=== PATIENT | female | born 1960 | race Caucasian/White ===

== ENCOUNTER 2023-11-23 03:28 | Emergency (ER) | payer BC ==
[~2023-11-23] VITALS: Ht 160 cm; Wt 5.9 kg
[2023-11-23] MEDS ORDERED: IV NORMAL SALINE 1000 ML BAG IV ONE (04:00)
[2023-11-23] MEDS ORDERED: MORPHINE SULFATE 2 MG/1 ML DISP.SYRIN IV ONE (04:00)
[2023-11-23] MEDS ORDERED: ONDANSETRON 4 MG/2 ML VIAL IV ONE ×3 (04:00→11:45)
[2023-11-23] MEDS ORDERED: ONDANSETRON 4 MG/2 ML VIAL ONE (04:10)
[2023-11-23] MEDS ORDERED: MORPHINE SULFATE 4 MG/1 ML DISP.SYRIN ONE ×2 (04:10→11:48)
[2023-11-23 04:27] LABS: BASOPHILS % (AUTO) 0.3 % (0.0-2.0); HEMATOCRIT 38.2 % (31.2-41.9); HEMOGLOBIN 12.8 g/dL (10.9-14.3); LYMPHOCYTES # (AUTO) 0.4 K/uL (0.8-4.8); LYMPHOCYTES % (AUTO) 3.6 % (20.5-51.5); MEAN CORPUSCULAR HEMOGLOBIN 27.7 uug (24.7-32.8); MEAN CORPUSCULAR HGB CONC 33 g/dL (32.3-35.6); MONOCYTES # (AUTO) 0.3 K/uL (0.1-1.30); MONOCYTES % (AUTO) 2.9 % (0.0-11.0); NEUTROPHILS # (AUTO) 9.1 K/uL (1.8-8.9); NEUTROPHILS % (AUTO) 93.2 % (38.5-71.5); PLATELET COUNT (AUTO) 275 K/uL (179-408); RED CELL DISTRIBUTION WIDTH 14.4 % (12.3-17.7); WHITE BLOOD COUNT (AUTO) 9.8 K/uL (3.8-11.8)
[2023-11-23 05:16] LABS: DIFFERENTIAL COMMENT 1
[2023-11-23 05:26] LABS: ALANINE AMINOTRANSFERASE 443 U/L (14-59); ALBUMIN 4.2 g/dL (3.4-5.0); ALKALINE PHOSPHATASE 145 U/L (50-136); ASPARTATE AMINOTRANSFERASE 236 U/L (15-37); BILIRUBIN,DIRECT 0.2 mg/dL (0.0-0.2); BILIRUBIN,TOTAL 0.5 mg/dL (0.2-1.0); CARBON DIOXIDE 26 mmol/L (21-32); CHLORIDE 103 mmol/L (98-107); CREATININE 0.4 mg/dL (0.6-1.3); GLUCOSE 168 mg/dL (74-106); POTASSIUM 4.3 mmol/L (3.5-5.1); SODIUM SERUM 141 mmol/L (136-145); TOTAL PROTEIN, SERUM 8.7 g/dL (6.4-8.2); UREA NITROGEN, BLOOD 23 mg/dL (7-18)
[2023-11-23 05:40] LABS: LIPASE 30 U/L (16-77)
[2023-11-23 05:44] LABS: CALCIUM 9.6 mg/dL (8.5-10.1)
[2023-11-23] MEDS ORDERED: PIPERACILLIN/TAZOBACTAM/D5W 50 ML IV ONE (07:21)
[2023-11-23] MEDS ORDERED: PIPERACILLIN SODIUM/TAZOBACTAM 3.375 G in IV DEXTROSE 5% 50 ML IV ONE (07:30)
[2023-11-23 07:36] LABS: *BILIRUBIN,URIN NEGATIVE (NEGATIVE); *CLARITY,URINE TURBID (CLEAR); *COLOR,URINE YELLOW (YELLOW); *KETONES,URINE TRACE (NEGATIVE); *PROTEIN,URINE TRACE (NEGATIVE); *UROBILINOGEN,URINE 0.2 E.U./dl (NORMAL); LEUKOCYTE ESTERASE ,URINE NEGATIVE (NEGATIVE); NITRITE, URINE NEGATIVE (NEGATIVE); UGLUCOSE NEGATIVE (NEGATIVE)
[2023-11-23 08:47] LABS: *BLOOD, URINE TRACE (NEGATIVE)
[2023-11-23 08:54] LABS: BACTERIA,URINE MODERATE /HPF (NONE SEEN); URINE AMORPHOUS URATE MANY /HPF; WBC,URINE NONE SEEN /HPF (0-3)
[2023-11-23] MEDS ORDERED: MISCELLANEOUS MED XX ONE (10:15)
[2023-11-23 11:15] VITALS: O2SAT 96
[2023-11-23] MEDS ORDERED: MORPHINE SULFATE 4 MG/1 ML DISP.SYRIN IV ONE (11:45)
== END 2023-11-23 12:15 | disposition short-term general hospital (02) ==
LOC: ER 03:43
DX: K52.9 Noninfective gastroenteritis and colitis, unspecified (principal); K56.699 Other intestinal obstruction unspecified as to partial versus complete obstruction; R07.89 Other chest pain; E11.9 Type 2 diabetes mellitus without complications; Z88.0 Allergy status to penicillin; Z20.822 Contact with and (suspected) exposure to COVID-19
CPT/HCPCS: 99285; 74176; 96365; 71045; 96375; 87426; 80076; 80048; 81001; 83690; 85025; 85651; 84484; 36415; 93005; 87086; J2405; J2543; J2270 ×2; J7040; A4606; A4663